=== PATIENT | male | born 1945 | race Caucasian/White ===

== ENCOUNTER 2024-06-12 08:25 | Inpatient (IN) | payer MEDICARE, BC ==
[~2024-06-12] VITALS: Ht 180.3 cm; Wt 95.5 kg
[~2024-06-12 08:25] MED LIST: LISI-222 PO; LOP25T PO
[2024-06-12 09:22] LABS: BASOPHILS # (AUTO) 0.1 X10'3 (0-0.2); BASOPHILS % (AUTO) 0.7 % (0-1); EOSINOPHILS # (AUTO) 0.1 X10'3 (0-0.9); HEMATOCRIT 45.5 % (42.0-52.0); HEMOGLOBIN 15.2 g/dl (14.0-17.9); LYMPHOCYTES # (AUTO) 0.7 X10'3 (1.1-4.8); LYMPHOCYTES % (AUTO) 8.2 % (21-51); MEAN CORPUSCULAR HEMOGLOBIN 30.3 PG (27.0-31.0); MEAN CORPUSCULAR HGB CONC 33.4 g/dL (33.0-36.5); MEAN CORPUSCULAR VOLUME 90.9 FL (78-98); MEAN PLATELET VOLUME 7.5 FL (7.4-10.4); MONOCYTES # (AUTO) 0.6 X10'3 (0-0.9); MONOCYTES % (AUTO) 7.2 % (2-12); NEUTROPHILS # (AUTO) 6.8 X10'3 (1.8-7.7); NEUTROPHILS % (AUTO) 82.9 % (42-75); PLATELET COUNT 180 X10'3 (140-440); RED CELL DISTRIBUTION WIDTH 15.5 % (11.5-14.5); WHITE BLOOD COUNT 8.2 X10'3 (4.5-11.0)
[2024-06-12] MEDS: normal saline 1000ml 1,000 ML IV SCH ×2 (09:27→14:54)
[2024-06-12 09:43] LABS: D-DIMER 10.15 MG/L FEU (0-0.50)
[2024-06-12 09:47] LABS: ALANINE AMINOTRANSFERASE 55 U/L (12-78); ALBUMIN 3.3 G/DL (3.4-5.0); ALBUMIN/GLOBULIN RATIO 0.7 (1.1-1.5); ALKALINE PHOSPHATASE 71 IU/L (46-116); ANION GAP 10 (8-16); ASPARTATE AMINO TRANSFERASE 48 U/L (10-37); BILIRUBIN,DIRECT 0.3 MG/DL (0-0.3); BILIRUBIN,TOTAL 0.7 MG/DL (0.1-1.0); BLOOD UREA NITROGEN 14 MG/DL (7-18); BUN/CREATININE RATIO 15.4 (10.0-20.0); CALCIUM 9.4 MG/DL (8.5-10.1); CHLORIDE 105 MMOL/L (99-107); CREATININE 0.91 MG/DL (0.60-1.10); GLUCOSE 118 MG/DL (70-104); POTASSIUM 3.7 MMOL/L (3.5-5.1); PRO BRAIN NATRIURETIC PEPTIDE 218 PG/ML (0-450); SODIUM 140 MMOL/L (135-145); TOTAL CARBON DIOXIDE 24.8 MMOL/L (24-32); TOTAL PROTEIN 8.2 G/DL (6.4-8.2); eCRCL 69 ML/MIN; eGFR 81 ML/MIN
[2024-06-12] MEDS: CefTRIAXone 2gm/D5W 50ml BAG 50 ML IV ONE (10:26)
[2024-06-12] MEDS: azithromycin/NS 500mg/250ml 250 ML IV ONE (10:26)
[2024-06-12] MEDS: levoFLOXACIN 750MG TABLET PO ONE (10:26)
[2024-06-12] MEDS ORDERED: iohexol 350MG/ML 100ml bottle IV ONE (10:58)
[2024-06-12] MEDS: HEPARIN DRIP DVT/PE -**PHARMACIST TO DOSE IV ONE (12:05)
[2024-06-12] MEDS ORDERED: heparin 25,000 UNIT/250ml bag 250 ML IV PRN (12:05)
[2024-06-12] MEDS: normal saline 1000ML IV soln IV ONE (12:24)
[2024-06-12] MEDS: heparin 10,000 units/1 ML INJ IV ONE (12:26)
[2024-06-12] MEDS: heparin 25,000 UNIT/250ml bag 250 ML IV PRN (12:37)
[2024-06-12 12:55] LABS: APTT 30 SECONDS (22-32); INR 1.1 INR
[2024-06-12 12:59] LABS: PROTHROMBIN TIME 11.8 SECONDS (9.0-12.0)
[2024-06-12] MEDS: MESSAGE TO NURSING IV ONE ×2 (13:13→20:00)
[2024-06-12] MEDS ORDERED: HYDROcodone/acetaminophen 10/325mg tab PO PRN (14:00)
[2024-06-12] MEDS ORDERED: HYDROcodone/acetaminophen 5mg/325mg tablet PO PRN (14:00)
[2024-06-12] MEDS ORDERED: potassium Cl 20 mEq SR tablet PO PRN (14:00)
[2024-06-12] MEDS ORDERED: magnesium sulf-water 4G/100mL 100 ML IV PRN (14:00)
[2024-06-12] MEDS ORDERED: mag hydrox/Alum hydrox/simeth 30ml oral suspension PO PRN (14:00)
[2024-06-12] MEDS ORDERED: magnesium sulf-water 2g/50mL 50 ML IV PRN (14:00)
[2024-06-12] MEDS ORDERED: acetaminophen 325mg tablet PO PRN ×2 (14:00)
[2024-06-12] MEDS ORDERED: potassium Cl 40MEQ/1/2NS 520ml 520 ML IV PRN (14:00)
[2024-06-12] MEDS ORDERED: ondansetron/PF 4mg/2ml inj IV PRN (14:00)
[2024-06-12] MEDS ORDERED: magnesium hydroxide 30ml (MOM) UD suspension PO PRN (14:00)
[2024-06-12] MEDS ORDERED: magnesium Cl slow-release 64mg tablet PO PRN (14:00)
[2024-06-12] MEDS: aspirin 325mg tablet PO ONE (14:53)
[2024-06-12] MEDS: metoprolol tartrate 50mg tablet PO SCH (14:53)
[2024-06-12] MEDS ORDERED: ALLO100T PO (15:05)
[2024-06-12] MEDS ORDERED: MECO10005 PO (15:05)
[2024-06-12 15:30] VITALS: BP 111/75; PULSE 107; RESP 18; TEMP 98.1; O2SAT 92
[2024-06-12 18:00] VITALS: BP 118/81; PULSE 90; RESP 26; TEMP 98; O2SAT 97
[2024-06-12 20:00] VITALS: RESP 19; O2SAT 96
[2024-06-12] MEDS: K and/or MAG REPLACEMENT MC SCH (20:00)
[2024-06-12] MEDS: docusate sod 100mg capsule PO SCH (20:00)
[2024-06-12 22:00] VITALS: BP 106/64; PULSE 102; RESP 21; TEMP 97.9; O2SAT 93
[2024-06-13] VITALS (9 sets, daily range): BP systolic 103–134; BP diastolic 64–87; PULSE 86–106; RESP 14–25; TEMP 96.9–98.3; O2SAT 92–97
[2024-06-13 00:56] LABS: INR 1.3 INR; PROTHROMBIN TIME 12.9 SECONDS (9.0-12.0)
[2024-06-13] MEDS: MESSAGE TO NURSING IV ONE ×3 (01:25→14:40)
[2024-06-13 08:06] LABS: BASOPHILS # (AUTO) 0.1 X10'3 (0-0.2); EOSINOPHILS # (AUTO) 0.3 X10'3 (0-0.9); EOSINOPHILS % (AUTO) 3.8 % (0-6); HEMATOCRIT 42.3 % (42.0-52.0); HEMOGLOBIN 13.9 g/dl (14.0-17.9); LYMPHOCYTES # (AUTO) 1.3 X10'3 (1.1-4.8); LYMPHOCYTES % (AUTO) 19.7 % (21-51); MEAN CORPUSCULAR HEMOGLOBIN 30.1 PG (27.0-31.0); MEAN CORPUSCULAR VOLUME 91.3 FL (78-98); MEAN PLATELET VOLUME 7.5 FL (7.4-10.4); MONOCYTES # (AUTO) 0.5 X10'3 (0-0.9); MONOCYTES % (AUTO) 7.9 % (2-12); NEUTROPHILS # (AUTO) 4.5 X10'3 (1.8-7.7); NEUTROPHILS % (AUTO) 67.6 % (42-75); PLATELET COUNT 164 X10'3 (140-440); RED BLOOD COUNT 4.63 X10'6 (4.70-6.10); RED CELL DISTRIBUTION WIDTH 15.9 % (11.5-14.5); WHITE BLOOD COUNT 6.6 X10'3 (4.5-11.0)
[2024-06-13] MEDS: fenofibrate 145mg tablet PO SCH (08:07)
[2024-06-13] MEDS: pantoprazole 40mg Tablet.DR PO SCH (08:07)
[2024-06-13] MEDS: cyanocobalamin 500mcg tablet PO SCH (08:07)
[2024-06-13 08:22] LABS: ALANINE AMINOTRANSFERASE 37 U/L (12-78); ALBUMIN 2.9 G/DL (3.4-5.0); ALBUMIN/GLOBULIN RATIO 0.7 (1.1-1.5); ALKALINE PHOSPHATASE 60 IU/L (46-116); ANION GAP 8 (8-16); ASPARTATE AMINO TRANSFERASE 34 U/L (10-37); BILIRUBIN,TOTAL 0.4 MG/DL (0.1-1.0); BLOOD UREA NITROGEN 11 MG/DL (7-18); BUN/CREATININE RATIO 11.8 (10.0-20.0); CALCIUM 8.4 MG/DL (8.5-10.1); CHLORIDE 111 MMOL/L (99-107); CHOL/HDL RATIO 2.6 (0.00-4.99); CHOLESTEROL 96 MG/DL (0-200); CREATININE 0.93 MG/DL (0.60-1.10); GLUCOSE 93 MG/DL (70-104); HDL CHOLESTEROL 37 MG/DL (35-60); LDL CHOLESTEROL 48 MG/DL (50-100); MAGNESIUM 2.1 MG/DL (1.5-2.4); PHOSPHORUS 2.5 MG/DL (2.3-4.5); POTASSIUM 3.4 MMOL/L (3.5-5.1); SODIUM 143 MMOL/L (135-145); TOTAL CARBON DIOXIDE 23.6 MMOL/L (24-32); TOTAL PROTEIN 7.3 G/DL (6.4-8.2); TRIGLYCERIDES 96 MG/DL (20-135); eCRCL 70 ML/MIN; eGFR 79 ML/MIN
[2024-06-13 09:00] LABS: HEMOGLOBIN A1C 5.5 % (4.5-6.2)
[2024-06-13] MEDS: metoprolol tartrate 25mg tablet PO ONE (09:38)
[2024-06-13] MEDS: ringers solution, lacted 1,000 ML IV SCH (10:15)
[2024-06-13] MEDS: potassium Cl 20 mEq SR tablet PO PRN (12:05)
[2024-06-13] MEDS: heparin 10,000 units/1 ML INJ IV PRN (14:35)
[2024-06-13] MEDS: metoprolol tartrate 25mg tablet PO SCH (20:22)
[2024-06-13] MEDS ORDERED: MESSAGE TO NURSING IV ONE (22:40)
[2024-06-14] MEDS: Melatonin 3mg tablet PO ONE (00:29)
[2024-06-14] MEDS: heparin 25,000 UNIT/250ml bag 250 ML IV PRN (00:32)
[2024-06-14 02:00] VITALS: BP 143/82; PULSE 74; RESP 20; TEMP 98.5; O2SAT 95
[2024-06-14 04:51] LABS: INR 1.2 INR; PROTHROMBIN TIME 12.2 SECONDS (9.0-12.0)
[2024-06-14 04:52] LABS: ALANINE AMINOTRANSFERASE 36 U/L (12-78); ALBUMIN 2.8 G/DL (3.4-5.0); ALBUMIN/GLOBULIN RATIO 0.7 (1.1-1.5); ALKALINE PHOSPHATASE 56 IU/L (46-116); ANION GAP 6 (8-16); ASPARTATE AMINO TRANSFERASE 33 U/L (10-37); BILIRUBIN,TOTAL 0.4 MG/DL (0.1-1.0); BLOOD UREA NITROGEN 12 MG/DL (7-18); BUN/CREATININE RATIO 13.2 (10.0-20.0); CALCIUM 8.7 MG/DL (8.5-10.1); CHLORIDE 110 MMOL/L (99-107); CREATININE 0.91 MG/DL (0.60-1.10); GLUCOSE 99 MG/DL (70-104); MAGNESIUM 1.8 MG/DL (1.5-2.4); PHOSPHORUS 3.2 MG/DL (2.3-4.5); POTASSIUM 4.2 MMOL/L (3.5-5.1); SODIUM 140 MMOL/L (135-145); TOTAL CARBON DIOXIDE 23.9 MMOL/L (24-32); TOTAL PROTEIN 6.6 G/DL (6.4-8.2); eCRCL 71 ML/MIN; eGFR 81 ML/MIN
[2024-06-14] MEDS ORDERED: MESSAGE TO NURSING IV ONE (05:05)
[2024-06-14 06:00] VITALS: BP 126/75; PULSE 77; RESP 20; TEMP 98.1; O2SAT 95
[2024-06-14 06:04] LABS: BASOPHILS # (AUTO) 0.1 X10'3 (0-0.2); BASOPHILS % (AUTO) 1.1 % (0-1); EOSINOPHILS # (AUTO) 0.3 X10'3 (0-0.9); EOSINOPHILS % (AUTO) 4.5 % (0-6); HEMOGLOBIN 13.8 g/dl (14.0-17.9); LYMPHOCYTES # (AUTO) 1.1 X10'3 (1.1-4.8); LYMPHOCYTES % (AUTO) 18.4 % (21-51); MEAN CORPUSCULAR HEMOGLOBIN 30.4 PG (27.0-31.0); MEAN CORPUSCULAR HGB CONC 33.8 g/dL (33.0-36.5); MEAN CORPUSCULAR VOLUME 90.1 FL (78-98); MEAN PLATELET VOLUME 7.7 FL (7.4-10.4); MONOCYTES # (AUTO) 0.4 X10'3 (0-0.9); MONOCYTES % (AUTO) 7.5 % (2-12); NEUTROPHILS # (AUTO) 3.9 X10'3 (1.8-7.7); NEUTROPHILS % (AUTO) 68.5 % (42-75); PLATELET COUNT 176 X10'3 (140-440); RED BLOOD COUNT 4.55 X10'6 (4.70-6.10); RED CELL DISTRIBUTION WIDTH 15.7 % (11.5-14.5); WHITE BLOOD COUNT 5.8 X10'3 (4.5-11.0)
[2024-06-14] MEDS: MESSAGE TO NURSING IV ONE (10:00)
[2024-06-14 11:00] VITALS: BP 128/68; PULSE 72; RESP 20; TEMP 97.9; O2SAT 95
[2024-06-14] MEDS ORDERED: PANT40TA54 PO (11:21)
[2024-06-14] MEDS ORDERED: APIX5TAB3 PO (11:21)
[2024-06-14] MEDS ORDERED: FENO145T25 PO (11:21)
[2024-06-14] MEDS: apixaban 5mg tablet PO ONE (13:58)
[2024-06-15 05:14] LABS: PROSTATE SPECIFIC AG, SERUM <0.1 ng/mL (0.0-4.0); PSA, FREE <0.02 ng/mL
[2024-06-15 05:14] LABS: FOLATE SERUM(FOLIC) 8.5 ng/mL (>3.0)
[2024-06-16 05:16] LABS: PROTEIN S, FREE 83 % (61-136); PROTEIN S, TOTAL 99 % (60-150)
[2024-06-16 19:10] LABS: ANTITHROMBIN ACTIVITY 68 % (75-135); ANTITHROMBIN ANTIGEN 61 % (72-124)
== END 2024-06-14 14:29 | disposition home or self-care (01) | DRG 176 ==
LOC: ER 08:25 → ED HOLD 13:03 → PCU 3S 15:04
PROVIDERS: ADMIT Family Medicine; ATTEND Family Medicine
PROC: B32T1ZZ Computerized Tomography (CT Scan) of Left Pulmonary Artery using Low Osmolar Contrast (ICD-10-PCS; principal; 2024-06-12)
PROC: B3201ZZ Computerized Tomography (CT Scan) of Thoracic Aorta using Low Osmolar Contrast (ICD-10-PCS; 2024-06-12)
PROC: B32S1ZZ Computerized Tomography (CT Scan) of Right Pulmonary Artery using Low Osmolar Contrast (ICD-10-PCS; 2024-06-12)
DX: I26.99 Other pulmonary embolism without acute cor pulmonale (principal); I82.411 Acute embolism and thrombosis of right femoral vein; E78.5 Hyperlipidemia, unspecified; Z20.822 Contact with and (suspected) exposure to COVID-19; G62.89 Other specified polyneuropathies; Z87.891 Personal history of nicotine dependence; Z79.01 Long term (current) use of anticoagulants; Z85.46 Personal history of malignant neoplasm of prostate; Z79.899 Other long term (current) drug therapy
CPT/HCPCS: 36415; 71046; 71275; 80048; 80053; 80061; 80076; 82607; 82746; 83036; 83605; 83735; 83880; 83891; 84100; 84153; 84154; 84484; 85025; 85300; 85301; 85303; 85305; 85306; 85379; 85610; 85730; 86146; 86147; 87040; 87081; 87502; 87503; 87811; 93005; 93308; 93970; 96365; 99291; G0378; J0456; J0696; J1644; J7030; J7120; Q9967